=== PATIENT | male | born 1930 | race Caucasian/White ===

== ENCOUNTER 2017-09-10 15:21 | Emergency (ER) | payer BC, OTHER ==
[~2017-09-10] VITALS: Ht 185.4 cm; Wt 136.4 kg
[2017-09-10 15:21] VITALS: Ht 185.4 cm; Wt 136.4 kg
[~2017-09-10 15:21] MED LIST: AMIODARONE 150 MG INJ ONE; ATROPINE 1 MG/10 ML SYRINGE ONE; CA CHLORIDE 10% 10 ML SYRINGE ONE; EPINEPHrine 0.1 MG/ML SYG ONE; MAGNESIUM SULFATE 1 GM/100 ML D5W IVPB ONE; NA BICARBONATE 8.4% 50 ML SYG ONE
[2017-09-10 16:05] VITALS: BP 123/83; PULSE 56; RESP 20; TEMP 97.2
--- NOTE | 2017-09-10 16:14 | RADRPT ---
PROCEDURE: XR Chest. CLINICAL INDICATION: Cardiac arrest. TECHNIQUE: Single frontal view. COMPARISON: None. FINDINGS: The endotracheal tube is in satisfactory position with the tip 6.6 cm above the sameer. There is pat octavio air space disease throughout the bilateral mid lung zone consistent with pulmonary edema or bila teral multifocal pneumonia. The heart is enlarged. There is a small right pleural effusion and a large left pleural effusion. There is no pneumothorax. IMPRESSION: 1. Endotracheal tube in satisfactory position. 2. Bilateral pulmonary edema or multifocal pneumonia. 3. Cardiomegaly. 4. Small right pleural effusion and large left pleural effusion. 5. Otherwise unremarkable chest radiograph. RPTAT: QQ .Yassine Chambers MD, MD Date Time Electronically viewed and signed by .Yassine Chambers MD, on 09/10/2017 16:14 .R/
[2017-09-10] MEDS ORDERED: NORepinephrine 8MG/250 ML (PMX 250 ML ONE (16:23)
[2017-09-10] MEDS ORDERED: ACET-2047 PO (16:32)
[2017-09-10] MEDS ORDERED: ADV25050 INHALATION (16:33)
[2017-09-10] MEDS ORDERED: ALBU2.5V3 NEB (16:34)
[2017-09-10] MEDS ORDERED: APIX2.5T PO (16:35)
[2017-09-10] MEDS ORDERED: ATOR10TA65 PO (16:35)
[2017-09-10] MEDS ORDERED: BISA10SU75 PR (16:36)
[2017-09-10] MEDS ORDERED: FLEETPED PR (16:37)
[2017-09-10 16:38] LABS: ABNORMAL IP MESSAGE 1; HEMATOCRIT 37.8 % (42.0-52.0); HEMOGLOBIN 10.7 g/dl (14.0-18.0); MEAN CORPUSCULAR HEMOGLOBIN 23.6 pg (29.0-33.0); MEAN CORPUSCULAR HGB CONC 28.3 g/dl (32.0-37.0); MEAN CORPUSCULAR VOLUME 83.4 fl (82.0-101.0); MEAN PLATELET VOLUME 11.2 fl (7.4-10.4); NUCLEATED RED BLOOD CELLS% 1.5 /100WBC (0.0-0.0); PLATELET COUNT 161 10^3/UL (140-415); POSITIVE DIFF @See below; RED BLOOD COUNT 4.53 10^6/ul (4.70-6.10); RED CELL DISTRIBUTION WIDTH 16.1 % (11.5-14.5); WHITE BLOOD COUNT 28.9 10^3/ul (4.8-10.8)
[2017-09-10] MEDS ORDERED: NOVO3I SC ×2 (16:38→16:49)
[2017-09-10] MEDS ORDERED: DOPamine-D5W 1.6 MG/ML 250 ML ONE (16:38)
[2017-09-10] MEDS ORDERED: IPRA3AMP INHALATION (16:50)
[2017-09-10] MEDS ORDERED: LANT3I SC ×2 (16:50→16:52)
[2017-09-10 16:52] LABS: CALCIUM 10.4 mg/dl (8.4-10.2); CREATININE 2.26 mg/dl (0.61-1.24); POTASSIUM 5.1 mmol/L (3.5-5.1)
[2017-09-10] MEDS ORDERED: LEVO250T9 PO (16:53)
[2017-09-10] MEDS ORDERED: LEVO300T5 PO (16:54)
[2017-09-10] MEDS ORDERED: LEVO200T6 PO (16:54)
[2017-09-10] MEDS ORDERED: METO-429 PO (16:55)
[2017-09-10] MEDS ORDERED: POLY17PO6 PO (16:57)
[2017-09-10] MEDS ORDERED: MIDO5TAB19 PO (16:57)
[2017-09-10] MEDS ORDERED: HYDR-906 PO ×2 (16:59→17:00)
[2017-09-10] MEDS ORDERED: PANT40TA4 PO (17:00)
[2017-09-10] MEDS ORDERED: PROT946L PO (17:01)
[2017-09-10] MEDS ORDERED: SENN-53 PO (17:02)
[2017-09-10] MEDS ORDERED: ZOLP5TAB7 PO (17:02)
--- NOTE | 2017-09-10 17:02 | ERD ---
ER Documentation Chief Complaint Chief Complaint FULL ARREST ON ARRIVAL, HPI This is an 86-year-old male with a past medical history of hypertension, diabetes, hypothyroidism, congestive heart failure with a poor ejection fraction , hyperlipidemia, recurrent pleural effusions requiring thoracentesis presenting in cardiac arrest. The patient was reportedly found unresponsive at 1415 this afternoon. He was pulseless and CPR was initiated. An ambulance was ultimately called. Paramedics arrived at 1440 and found that the patient was still in cardiac arrest. ACLS protocol was initiated. He was in asystole on the monitor and was not shocked prior to arrival. He was given multiple rounds of epinephrine before reported return of spontaneous circulation. A Monster airway was placed prior to arrival. Upon arrival, the patient had arrested again in route and was actively having compressions performed on his chest. The history was provided by the paramedics. The patient's primary physician also called to let us know that the patient is chronically ill and recently had a pleurocentesis yesterday for pleural effusion removal. There is question of whether or not this could be attributed to malignancy. ROS Review of systems limited secondary to cardiac arrest and patient unresponsiveness. Medications Home Meds Reported Medications Tuberculin,Purif.prot.deriv. (Tubersol) 5 Tub Unit/0.1 Ml Vial, 0.1 ML ID QHS, VIAL FOR 1 DAY 2ND STEP PPD. START DATE 09/19/17=09/20/17. 09/10/17 Tuberculin,Purif.prot.deriv. (Tubersol) 5 Tub Unit/0.1 Ml Vial, 0.1 ML ID QHS, VIAL 1DAY 1ST STEP PPD. READ IN 48 HOURS,IF NEGATIVE 2 STEP IN 7 DAYS FROM FIRST DOSE. START DATE 09/10/17 -09/11/17 09/10/17 Zolpidem Tartrate* (Zolpidem Tartrate*) 5 Mg Tablet, 5 MG PO Q48H Y for INSOMNIA , #30 TAB 09/10/17 Sennosides* (Senna Lax*) 8.6 Mg Tablet, 2 TAB PO QHS Y for CONSTIPATION, TAB 09/10/17 Protein Supplement (Promod) 946 Ml Liquid, 30 ML PO TID 09/10/17 Pantoprazole* (Pantoprazole*) 40 Mg Tablet.dr, 40 MG PO AC BREAKFAST, TAB 09/10/17 Hydrocodone/Acetaminophen ([place] 5-325 Tablet) 1 Each Tablet, 2 TAB PO Q8H for PAIN 7-08/21, TAB 09/10/17 Hydrocodone/Acetaminophen ([place] 5-325 Tablet) 1 Each Tablet, 1 EACH PO Q8H for PAIN 3-04/21, TAB 09/10/17 Polyethylene Glycol* (Miralax*) 17 Gm Powd.pack, 17 GM PO Q OTHER DAY, #30 PACKET 09/10/17 Midodrine* (Midodrine*) 5 Mg Tablet, 10 MG PO TID, TAB HOLD FOR SBP>140 09/10/17 Metoprolol Tartrate* (Lopressor*) 50 Mg Tab, 50 MG PO BID, #60 TAB HOLD IF BP<110 AND HR<60 09/10/17 Levothyroxine Sodium* (Levothyroxine Sodium*) 300 Mcg Tablet, 300 MCG PO QHS, # 30 TAB 09/10/17 Levothyroxine Sodium* (Levothyroxine Sodium*) 200 Mcg Tablet, 200 MCG PO BEFORE BREAKFAST, #30 TAB 09/10/17 Levofloxacin* (Levofloxacin*) 250 Mg Tablet, 250 MG PO DAILY, TAB START DATE 09/07/17 END DATE 09/12/17 09/10/17 Insulin Glargine* (Lantus*) 100 Unit/Ml Soln, 22 UNIT SC QAM, #1 VIAL 09/10/17 Ipratropium-Albuterol (Ipratropium-Albuterol) 0.5-3 Mg/3 Ml Ampul.neb, 3 ML INHALATION Q6, #30 VIAL 09/10/17 Insulin Glargine* (Lantus*) 100 Unit/Ml Soln, 22 UNIT SC QHS, #1 VIAL 09/10/17 Insulin Aspart* (Novolog Insulin Pen*) 100 Unit/Ml Soln, 0 SC .SLIDING SCALE AC , EA INJECT PER SLIDING SCALE IF 71-150=0<70 ORANGE JUICE OR 1MG GLUCAGON;IF 151-200=2 UNITS, 201-250=4 UNITS, 251-300=6 UNITS, 301-350=8 UNITS, 351-400=10 UNITS; IF >400 CALL MD. TID 09/10/17 Insulin Aspart* (Novolog Insulin Pen*) 100 Unit/Ml Soln, 5 UNIT SC AC MEALS, EA FOR DM 09/10/17 Sod Phosphate/Sod Biphosphate* (Fleet* Enema Pediatric) 66.6 Ml Soln, 118 ML MD Q72H Y for CONSTIPATION, ENEMA 09/10/17 Bisacodyl* (Bisacodyl*) 10 Mg Supp, 10 MG MD Q48H, SUPP 09/10/17 Atorvastatin Calcium (Atorvastatin Calcium) 10 Mg Tablet, 20 MG PO QHS, #30 TAB 09/10/17 Apixaban* (Eliquis*) 2.5 Mg Tablet, 2.5 MG PO BID, TAB 09/10/17 Albuterol Sulfate* (Albuterol Sulfate* Neb) 0.083%-3 Ml Neb, 2.5 MG NEB Q6H Y for WHEEZING AND SOB, #30 VIAL 09/10/17 Salmeterol Xinaf/Fluticasone* (Advair*) 250-50 Diskus Inhaler, 1 INH INHALATION BID, #1 INHALER 09/10/17 Acetaminophen* (Acetaminophen*) 650 Mg Tablet, 650 MG PO Q4H Y for MILD PAIN LEVEL 1-3, #30 TAB AND FOR FEVER OVER 100.5 09/10/17 Allergies Allergies: Uncoded Allergies: CHICKEN (Allergy, Unknown, 09/10/17) PMhx/Soc History limited secondary to cardiac arrest and patient unresponsiveness. Hx Respiratory Disorders: Yes (Recurrent pleural effusions, question of malignancy) Hx Cardiac Disorders: Yes (Diabetes, CHF with a poor EF) FmHx History limited secondary to cardiac arrest and patient unresponsiveness. Physical Exam Vitals Vital Signs Date Time Temp Pulse Resp B/P Pulse Ox O2 Delivery O2 Flow Rate FiO2 09/10/17 16:05 97.2 56 20 123/83 100 Mechanical Ventilator 09/10/17 15:30 53 20 90 100 09/10/17 15:21 0 09/10/17 15:21 Bag Valve Mask 09/10/17 15:21 Bag Valve Mask Physical Exam Const: No apparent distress, well-developed, well-nourished Head: Atraumatic Eyes: Normal Conjunctiva. Extraocular movements intact. ENT: Normal External Ears, Nose and Mouth. Neck: Full range of motion. ~ No meningismus. Resp: Clear to auscultation bilaterally Cardio: Regular rate and rhythm, no murmurs Abd: Soft, non tender, non distended. Normal bowel sounds Skin: No petechiae or rashes Back: No midline or flank tenderness Ext: No cyanosis, or edema Neur: Awake and alert, oriented 4. Cranial nerves intact. No facial droop. Normal strength and sensation in all extremities. Coordination with finger to nose normal. Psych: Normal Mood and Affect Result Diagram: 09/10/17 1615 09/10/17 1615 Results 24 hrs Laboratory Tests Test 09/10/17 16:15 White Blood Count 28.910^3/ul Red Blood Count 4.5310^6/ul Hemoglobin 10.7g/dl Hematocrit 37.8% Mean Corpuscular Volume 83.4fl Mean Corpuscular Hemoglobin 23.6pg Mean Corpuscular Hemoglobin Concent 28.3g/dl Red Cell Distribution Width 16.1% Platelet Count 02567^3/UL Mean Platelet Volume 11.2fl Neutrophils % % Segmented Neutrophils % (Manual) 74% Band Neutrophils % (Manual) 4% Lymphocytes % % Lymphocytes % (Manual) 12% Reactive Lymphocytes % (Manual) 2% Monocytes % % Monocytes % (Manual) 7% Eosinophils % % Eosinophils % (Manual) 1% Basophils % % Nucleated Red Blood Cells % 3% Neutrophils # 10^3/ul Neutrophils # (Manual) 21.710^3/ul Band Neutrophils # 1.110^3/ul Absolute Lymphocytes (Manual) 3.410^3/ul Lymphocytes # 10^3/ul Reactive Lymphocytes # 0.510^3/ul Monocytes # 10^3/ul Absolute Monocytes (Manual) 2.010^3/ul Eosinophils # 10^3/ul Basophils # 10^3/ul Nucleated Red Blood Cells # 10^3/ul Platelet Estimate NORMAL Hypochromasia 1+ Poikilocytosis 1+ Anisocytosis 1+ Sodium Level 150mmol/L Potassium Level 5.1mmol/L Chloride Level 101mmol/L Carbon Dioxide Level 30mmol/L Anion Gap 24 Blood Urea Nitrogen 54mg/dl Creatinine 2.26mg/dl Glucose Level 272mg/dl Calcium Level 10.4mg/dl Troponin I 0.134ng/ml Current Medications Medications (Trade) Dose Ordered Sig/Omari Route PRN Reason Start Time Stop Time Status Last Admin Dose Admin Norepinephrine 250 ml @ ud STK-MED ONCE .ROUTE 09/10/17 16:23 09/10/17 16:24 DC Dopamine HCl/ Dextrose 250 ml @ ud STK-MED ONCE .ROUTE 09/10/17 16:38 09/10/17 16:39 DC Procedures/MDM MDM The patient's presentation warrants further investigation. The patient was in cardiac arrest when he arrived to the hospital. ACLS protocol was initiated immediately. Adequate chest compressions were monitored and maintained. The patient was given epinephrine every 4 minutes as indicated. The patient also received doses of bicarbonate, calcium and magnesium. The patient came in with a Monster airway, this was replaced by a endotracheal tube under direct visualization. The patient had vomit in his oropharynx that required suctioning. The patient was successfully intubated after one attempt. The patient's rhythm change throughout the code. He was initially in asystole. He was in VF/VT at times and did require asynchronous cardioversion. The patient was in PEA at times as well. After the last round of epinephrine, we did achieve return of spontaneous circulation at 1536. The patient had a heart rate between 50 and 70. His blood pressure was unremarkable. We did not immediately initiate pressor medications. Unfortunately, the patient coded again at 1545 ACLS protocol was again initiated. The patient received a total of 4 rounds of epinephrine and 1 round of calcium chloride prior to return of spontaneous circulation at 1602. The patient did appear to be in V. tach at one -point. He was shocked twice during this code. He was also given 300 mg of amiodarone. His heart rate at this time was 85 with a normal blood pressure. However, several minutes later, his heart rate did drop to 36. He was given another dose of epinephrine. He is also given atropine at this time which did seem to bring his heart rate up. At around 1615, the patient started to become hypotensive. The decision was made to start Levophed at this time peripherally. While setting up for a central line, the patient unfortunately had another cardiac arrest at 1635. Again multiple rounds of epinephrine were given to the patient. A central line was placed in the right groin, and dopamine was initiated through this line. The patient did appear to be an V. fib twice and was cardioverted twice. Unfortunately, the patient's rhythm devolved into asystole and we were unable to achieve return of spontaneous circulation. A bedside ultrasound was completed that showed cardiac standstill. The patient's pupils were fixed and dilated. He had no breath sounds or heart sounds on auscultation. He was asystole on the monitor and had no pulse. He had no corneal reflex or gag reflex. None of the healthcare staff in the room felt that any further aggressive measurements would be beneficial, and I agreed. The patient's time of was 1652. I spoke to the patient's daughter over the telephone at approximately 1700. She expressed understanding of the situation and gratitude for the help that we provided. She preferred not to come to the hospital immediately tonight. She does not have a home that she is aware of immediately, but she will attempt to provide us this information soon. She reports that her father was very ill over the last several months, and that she felt that something like this could happen at any time. The stretching machine tender frame will be notified, but based on the patient's significant chronic illnesses, I do not suspect that this would be a stretching machine tender frame's case. LABS The patient's blood work was obtained and reviewed. The patient's CBC shows leukocytosis with no left shift but there was a bandemia. A stress response, inflammatory response or an infectious etiology are possible based on presentation. The patient has a mild anemia that does not require transfusion. The patient's platelet count is unremarkable. The patient's CMP shows hypernatremia, kidney injury and an anion gap metabolic acidosis, though he has a concomitant alkalosis based on the CO2. The patient's troponin is elevated at 0.134. EKG EKG read by me: Rate/Rhythm: Idioventricular rhythm, bradycardia at a rate of 57 Intervals: No obvious P waves, widened QRS concerning for a left bundle branch block, normal QTC Dickens: Left shifted Impression: Deep T-wave inversions with ST depressions in leads V2 through V5, concerning for an an STEMI/cardiac ischemia IMAGING IMPRESSION: 1. Endotracheal tube in satisfactory position. 2. Bilateral pulmonary edema or multifocal pneumonia. 3. Cardiomegaly. 4. Small right pleural effusion and large left pleural effusion. 5. Otherwise unremarkable chest radiograph. Electronically viewed and signed by .Yassine Chambers MD, on 09/10/2017 16:14 CRITICAL CARE NOTE Time: 55 minutes excluding all billable procedures. Treatments/Evaluations: Patient was coded for total of 52 minutes. Additional time includes evaluation of the patient's medical record including previous records & current laboratory/imaging studies, close monitoring, potential interventions if hemodynamically unstable or cardiopulmonary decline or neurologic decline, maintaining tight fluid balance, any discussions with the family regarding the patient's status and prognosis. ENDOTRACHEAL INTUBATION Performed by me: Pre assessment performed. Pre-oxygenation performed with 100% oxygen RSI: Performed w/o complication or hypoxic events. Medications as ordered. Blade: Mac 4 ET Tube: 7.5 Depth: 23 cm at the lip Intubation confirmed by colorimetric CO2, equal breath sounds, quiet over the stomach. Chest X-ray 1V Interpreted by me: ET tube 6.6 cm above the sameer. ETT will be inserted 2 cm. Normal soft tissue, No pneumothorax. CENTRAL LINE Placement by me: Patient consented, sterilely draped, full prep, gown, glove, mask, time out performed. Anesthesia: 1% lidocaine locally Location: Right Femoral Vein Device: Multiple lumen Technique: Seldinger technique. Secured with suture. Results: Venous return from all ports with easy saline flush. No complications. Guide wire retrieved and disposed of. X-ray not obtained as the patient shortly thereafter. Central line placed immediately without ultrasound guidance. Departure Diagnosis: Primary Impression: Cardiac arrest Condition: Critical ALBA FRANCO MD Sep 10, 2017 17:02
[2017-09-10] MEDS ORDERED: TUBE5VIA3 ID ×2 (17:06→17:07)
[2017-09-10 17:07] LABS: TROPONIN-I 0.134 ng/ml (0.00-0.12)
[2017-09-10 17:16] LABS: ANISOCYTOSIS 1+ (0-0); EOSINOPHILS % (M) 1 % (0-7); ERYTHROBLAST% (NRBC) (M) 3 % (0-0); HYPOCHROMASIA 1+ (0-0); MONOCYTES % (M) 7 % (0-11); PLATELET ESTIMATE NORMAL; POIKILOCYTOSIS 1+ (0-0); REACTIVE LYMPHOCYTES% (M) 2 % (0-0)
[2017-09-11 16:22] LABS: PATH REVIEW CH
== END 2017-09-10 20:00 | disposition expired ==
LOC: E/R 15:21
DX: I46.9 Cardiac arrest, cause unspecified (principal); E11.9 Type 2 diabetes mellitus without complications; E03.9 Hypothyroidism, unspecified; R07.9 Chest pain, unspecified; Z79.4 Long term (current) use of insulin
CPT/HCPCS: 31500; 36556; 71010; 80048; 84484; 85025; 92950; 93005; 94002; 99291; C1751; J0171; J0282; J0461; J1265; J3475